=== PATIENT | male | born 1960 | race Caucasian/White ===

== ENCOUNTER → 2016-08-10 | Outpatient (CLI) | payer MEDICARE ==
[~2016-08-10] MED LIST: ALBUTEROL0.09 MG/A1 IH; ALLOPURINOL300 MG PO; ANDRONATE200 MG/ML IM; ANUSOL SUP1 SUPP.REC RC; ANUSOL-HC SUPPO25 MG RC; ANUSOL-HC2.5% RC; ATIVAN 1MG T1 MG/TAB PO; CIPRO 500MG TA500 MG PO; CLINDAMYCIN300 MG PO; COZAAR PO; COZAAR100 MG PO; CYMBALTA 60MG60 MG PO; CYMBALTA60 MG PO; DEMEROL; DEMEROL 50M50 MG/TAB PO; DEPO-TESTOS200 MG/M1 IM; DILANTIN 100MG100 MG PO; DILANTIN KAPSE100 MG PO; DILAUDID 2MG TAB2 MG PO; DILAUDID 4MG TAB4 MG; DILAUDID 4MG TAB4 MG PO; DOLOPHINE; DOLOPHINE PO; FLEXERIL10 MG PO; FORTAMET1000 MG PO; GABAPENTIN600 MG PO; GLUCOPHAGE1000 MG PO; GLUCOPHAGE500 MG/TAB PO; GLYCOLAX; JANUVIA 100MG100 MG PO; JANUVIA100 MG PO; LASIX 40MG TABL40 MG PO; LEVEMIR FLEXPEN SC; LEVEMIR SQ; LEVEMIR100 U/ML SC; LIPITOR20 MG PO; LOPRESSOR 550 MG/TAB PO; METHADONE H10 MG/TAB PO; METHADONE10 MG PO; MIRALAX 17GM PK1 PKT PO; MIRALAX17 GM/DOSE PO; NASONEX SPRAY; NASONEX SPRAY IH; NEURONTIN600 MG/TAB PO; NEXIUM 40MG40 MG PO; NITROSTAT0.4 MG SL; NORVASC 5MG5 MG/TAB PO; NOVOLOG 100U100 U/ML SQ; NOVOLOG FLEX100 U/ML IV; NOVOLOG100 U/ML SC; NOVOLOG100 U/ML SQ; OCEAN 45 ML45 ML NS; OXYCODONE HCL5 MG PO; PAXIL 20MG20 MG PO; PAXIL PO; PAXIL40 MG PO; PHENERGAN 25 TA25 MG PO; PREVACID 30MG30 M1 PO; PREVACID 30MG30 MG PO; PRILOSEC 20MG20 MG PO; PROMETHAZINE12.5 M5 PO; PROVENTIC; PROVENTIL0.09 MG/A1 IH; SALINE NASAL SPRAY; SKELAXIN 800MG800 MG PO; SKELAXIN800 MG PO; TESTOSTERONE25 MG/ML IM; TOPROL XL 50MG50 MG PO; TOPROL XL50 MG PO; TORADOL IN60 MG/2 ML IM; ULTRAM 50MG TAB50 MG PO; VALIUM 10MG10 MG/TAB PO; VALIUM 5MG T5 MG/TAB PO; VALIUM10 MG PO; VALIUM5 MG PO; ZYLOPRIM 300MG300 MG PO; ZYLOPRIM300 MG PO; [UNRECOGNIZED DRUG - OTHER]; amiloride; levemir; novolog
== END ==
LOC: COL.CARD 08-03 07:30
DX: R00.2 Palpitations (principal)

== ENCOUNTER 2016-09-27 11:00 | Outpatient (RCR) | payer MEDICARE | END 2016-09-30 14:09 | disposition still patient (30) | LOC: WSPT 11:00 | DX: M79.2 Neuralgia and neuritis, unspecified (principal); M47.817 Spondylosis without myelopathy or radiculopathy, lumbosacral region; M53.3 Sacrococcygeal disorders, not elsewhere classified; G89.29 Other chronic pain | CPT/HCPCS: G8978-GP; G8979-GP; G8980-GP ==

== ENCOUNTER → 2017-01-24 | Outpatient (CLI) | payer MEDICARE | LOC: MHCPAIN 12:27 | DX: G89.29 Other chronic pain (principal); M47.817 Spondylosis without myelopathy or radiculopathy, lumbosacral region; M53.3 Sacrococcygeal disorders, not elsewhere classified; M79.2 Neuralgia and neuritis, unspecified; F17.220 Nicotine dependence, chewing tobacco, uncomplicated | CPT/HCPCS: G0463 ==

== ENCOUNTER → 2017-02-18 | Outpatient (CLI) | payer MEDICARE | LOC: MHCPAIN 10:10 | DX: G89.29 Other chronic pain (principal); M47.817 Spondylosis without myelopathy or radiculopathy, lumbosacral region; M53.3 Sacrococcygeal disorders, not elsewhere classified; F17.290 Nicotine dependence, other tobacco product, uncomplicated | CPT/HCPCS: G0463 ==

== ENCOUNTER → 2017-03-29 | Outpatient (CLI) | payer MEDICARE | LOC: MHCPAIN 14:04 | DX: G89.29 Other chronic pain (principal); M47.27 Other spondylosis with radiculopathy, lumbosacral region; M53.3 Sacrococcygeal disorders, not elsewhere classified; F17.220 Nicotine dependence, chewing tobacco, uncomplicated | CPT/HCPCS: G0463 ==

== ENCOUNTER → 2017-03-31 | Outpatient (CLI) | payer MEDICARE | LOC: MHCPAIN 12:35 | DX: M47.817 Spondylosis without myelopathy or radiculopathy, lumbosacral region (principal) | CPT/HCPCS: J1040; Q9967 ==

== ENCOUNTER → 2017-04-13 | Outpatient (CLI) | payer MEDICARE | LOC: MHCPAIN 13:51 | DX: G89.29 Other chronic pain (principal); M47.817 Spondylosis without myelopathy or radiculopathy, lumbosacral region; M54.16 Radiculopathy, lumbar region; M53.3 Sacrococcygeal disorders, not elsewhere classified | CPT/HCPCS: G0463 ==

== ENCOUNTER → 2017-05-12 | Outpatient (CLI) | payer MEDICARE | LOC: MHCPAIN 11:34 | DX: M53.3 Sacrococcygeal disorders, not elsewhere classified (principal) | CPT/HCPCS: G0260; J1040; Q9967 ==

== ENCOUNTER → 2017-05-16 | Outpatient (CLI) | payer MEDICARE | LOC: MHCPAIN 13:46 | DX: G89.29 Other chronic pain (principal); M47.817 Spondylosis without myelopathy or radiculopathy, lumbosacral region; M54.16 Radiculopathy, lumbar region; M53.3 Sacrococcygeal disorders, not elsewhere classified | CPT/HCPCS: G0463 ==

== ENCOUNTER → 2017-07-20 | Outpatient (CLI) | payer MEDICARE | LOC: MHCPAIN 14:11 | DX: G89.29 Other chronic pain (principal); M47.817 Spondylosis without myelopathy or radiculopathy, lumbosacral region; M54.16 Radiculopathy, lumbar region; M53.3 Sacrococcygeal disorders, not elsewhere classified | CPT/HCPCS: G0463 ==

== ENCOUNTER → 2017-11-22 | Outpatient (CLI) | payer MEDICARE ==
[~2017-11-22] MED LIST changes: +LANTUS100 U/ML SQ; +LIORESAL 1010 MG/TAB PO; +MASON NATURAL2000 IU PO; +PLAVIX 75MG TAB75 MG PO; +ZESTRIL 10MG10 MG PO
== END ==
LOC: MHCPAIN 13:57
DX: G89.29 Other chronic pain (principal); M47.817 Spondylosis without myelopathy or radiculopathy, lumbosacral region; M54.16 Radiculopathy, lumbar region; M53.3 Sacrococcygeal disorders, not elsewhere classified
CPT/HCPCS: G0463

== ENCOUNTER → 2018-01-17 | Outpatient (CLI) | payer MEDICARE | LOC: MHCPAIN 13:47 | DX: G89.29 Other chronic pain (principal); M47.817 Spondylosis without myelopathy or radiculopathy, lumbosacral region; M53.3 Sacrococcygeal disorders, not elsewhere classified | CPT/HCPCS: G0463 ==

== ENCOUNTER → 2018-03-21 | Outpatient (CLI) | payer MEDICARE | LOC: MHCPAIN 13:47 | DX: G89.29 Other chronic pain (principal); M47.817 Spondylosis without myelopathy or radiculopathy, lumbosacral region; M54.16 Radiculopathy, lumbar region; M53.3 Sacrococcygeal disorders, not elsewhere classified | CPT/HCPCS: G0463 ==

== ENCOUNTER → 2018-06-21 | Outpatient (CLI) | payer MEDICARE | LOC: MHCPAIN 09:04 | DX: G89.29 Other chronic pain (principal); M47.817 Spondylosis without myelopathy or radiculopathy, lumbosacral region; M54.16 Radiculopathy, lumbar region; M53.3 Sacrococcygeal disorders, not elsewhere classified; M96.1 Postlaminectomy syndrome, not elsewhere classified | CPT/HCPCS: G0463 ==

== ENCOUNTER → 2018-09-05 | Outpatient (CLI) | payer MEDICARE | LOC: MHCPAIN 13:48 | DX: G89.29 Other chronic pain (principal); M47.817 Spondylosis without myelopathy or radiculopathy, lumbosacral region; M54.16 Radiculopathy, lumbar region; M53.3 Sacrococcygeal disorders, not elsewhere classified | CPT/HCPCS: G0463 ==

== ENCOUNTER → 2018-12-05 | Outpatient (CLI) | payer MEDICARE | LOC: MHCPAIN 13:27 | DX: G89.29 Other chronic pain (principal); M47.817 Spondylosis without myelopathy or radiculopathy, lumbosacral region; M53.3 Sacrococcygeal disorders, not elsewhere classified | CPT/HCPCS: G0463 ==

== ENCOUNTER → 2019-03-06 | Outpatient (CLI) | payer MEDICARE | LOC: MHCPAIN 14:02 | DX: M47.817 Spondylosis without myelopathy or radiculopathy, lumbosacral region (principal); M54.16 Radiculopathy, lumbar region | CPT/HCPCS: G0463 ==

== ENCOUNTER → 2019-05-25 | Outpatient (CLI) | payer MEDICARE ==
[~2019-05-25] MED LIST changes: +NITROSTAT0.4 MG/TAB SL
== END ==
LOC: ZCOL.LAB 14:40
DX: L08.89 Other specified local infections of the skin and subcutaneous tissue (principal)

== ENCOUNTER → 2019-06-20 | Outpatient (CLI) | payer MEDICARE | LOC: ZCOL.LAB 16:07 | DX: E11.621 Type 2 diabetes mellitus with foot ulcer (principal); L97.509 Non-pressure chronic ulcer of other part of unspecified foot with unspecified severity; L08.9 Local infection of the skin and subcutaneous tissue, unspecified ==

== ENCOUNTER → 2019-07-24 | Outpatient (CLI) | payer MEDICARE | LOC: MHCPAIN 14:18 | DX: M47.817 Spondylosis without myelopathy or radiculopathy, lumbosacral region (principal); M54.5 Low back pain; M53.3 Sacrococcygeal disorders, not elsewhere classified; G89.29 Other chronic pain | CPT/HCPCS: G0463 ==

== ENCOUNTER → 2019-08-07 | Outpatient (CLI) | payer MEDICARE | LOC: ZCOL.LAB 14:02 | DX: E11.621 Type 2 diabetes mellitus with foot ulcer (principal) ==

== ENCOUNTER 2019-10-15 12:52 | Emergency (ER) | payer OTHER ==
[2008-05-06 14:42] VITALS: BP 165/100
[~2019-10-15] VITALS: Ht 177.8 cm; Wt 140.9 kg
[2019-10-15 13:37] LABS: BASO # 0.1 (0.0-0.2); BASO % 0.5 % (0.0-2.0); EOS # 1.7 (0.0-0.7); EOS % 13.1 % (0-4.0); GRAN % 54.2 % (42.2-75.2); HEMATOCRIT 38.8 % (42.0-52.0); HEMOGLOBIN 12.5 g/dl (13.5-18.0); LYMPH # 3.1 (1.2-3.4); LYMPH % 23.7 % (20.0-51.0); MEAN CELL VOLUME 89 fl (80.0-100.0); MEAN CORPUSCULAR HEMOGLOBIN 29 pg (27.0-31.0); MEAN CORPUSCULAR HGB CONC 32 g/dl (33.0-37.0); MEAN PLATELET VOLUME 9.3 fl (7.4-10.4); MONO % 7.7 % (1.7-9.3); PLATELET COUNT 198 K/mm3 (130-400); RED BLOOD COUNT 4.38 M/mm3 (4.20-5.60); REDCELL DISTRIBUTION WIDTH-CV 13.2 % (11.5-14.5)
[2019-10-15 13:42] LABS: INR 0.9 (0.8-3.0); PROTHROMBIN TIME 10.1 SECONDS (9.7-12.8)
[2019-10-15 13:45] LABS: PARTIAL THROMBOPLASTIN TIME 30.5 SECONDS (26.0-37.0)
[2019-10-15 13:47] LABS: BILIRUBIN,TOTAL 0.3 mg/dL (0.0-1.0); CALCIUM 9.2 mg/dL (8.4-10.2); CREATININE, serum 0.76 (0.66-1.25); POTASSIUM 4.9 mmol/L (3.4-5.0); TOTAL PROTEIN 7.3 gm/dL (6.4-8.2)
[2019-10-15 16:15] VITALS: BP 126/66; PULSE 98
== END 2019-10-15 16:15 | disposition short-term general hospital (02) ==
LOC: COL.ER 12:52
PROVIDERS: Physician Assistant
DX: S22.010A Wedge compression fracture of first thoracic vertebra, initial encounter for closed fracture (principal); S01.81XA Laceration without foreign body of other part of head, initial encounter; S80.212A Abrasion, left knee, initial encounter; I10 Essential (primary) hypertension; E78.5 Hyperlipidemia, unspecified; I48.91 Unspecified atrial fibrillation; E11.621 Type 2 diabetes mellitus with foot ulcer; L97.519 Non-pressure chronic ulcer of other part of right foot with unspecified severity; G89.29 Other chronic pain; Z79.84 Long term (current) use of oral hypoglycemic drugs; Z79.02 Long term (current) use of antithrombotics/antiplatelets; Z88.2 Allergy status to sulfonamides; Z88.6 Allergy status to analgesic agent; V43.63XA Car passenger injured in collision with pick-up truck in traffic accident, initial encounter
CPT/HCPCS: J7030; Q9967

== ENCOUNTER → 2023-03-22 | Outpatient (CLI) | payer MEDICARE ==
[~2023-03-22] MED LIST changes: +AL-MAG HYDROX-S30 ML PO; +ASPIRIN 81M81 MG/TA2 PO; +BENADRYL25 M2 PO; +BETAPACE 80MG80 MG PO; +FLAGYL500 MG PO; +LEVAQUIN 750MG750 M1 PO; +LIALDA 1.2 GM1.2 GM PO; +LIPITOR 40MG TA40 MG PO; +MAG-OX 400400 MG/TAB PO; +NOVOLOG FLEX100 U/ML SQ; +OZEMPIC1 MG/0.71 SQ; +PHENYTEK300 MG PO; +PROTONIX 40MG T40 MG PO; +PROTONIX20 MG PO; +ROXICODONE 55 MG/TAB PO; +ZANAFLEX CAPSULE2 MG PO; +ZOFRAN ODT4 MG PO
== END ==
LOC: MHCPAIN 11:27
DX: M48.061 Spinal stenosis, lumbar region without neurogenic claudication (principal); M47.816 Spondylosis without myelopathy or radiculopathy, lumbar region
CPT/HCPCS: G0463